=== PATIENT | female | born 2000 | race African-American/Black ===

== ENCOUNTER 2020-06-25 03:23 | Emergency (ER) | payer OTHER ==
[~2020-06-25] VITALS: Ht 165.1 cm; Wt 63.6 kg
[2020-06-25] MEDS ORDERED: CefTRIAXone SODIUM 1 GM/VIAL IM ONE (03:45)
[2020-06-25] MEDS ORDERED: AZITHROMYCIN 500 MG TABLET PO ONE (03:45)
[2020-06-25] MEDS ORDERED: LIDOCAINE/PF 1% 2 ML VIAL IM ONE (03:45)
[2020-06-25 04:14] VITALS: BP 119/65
[2020-06-25 04:26] LABS: APPEARANCE,URINE CLEAR (CLEAR); BILIRUBIN,URINE NEGATIVE (NEGATIVE); GLUCOSE, URINE (UA) NEGATIVE (NEGATIVE); KETONES,URINE NEGATIVE (NEGATIVE); LEUKOCYTE ESTERASE ,URINE NEGATIVE (NEGATIVE); NITRATE,URINE NEGATIVE (NEGATIVE); OCCULT BLOOD,URINE NEGATIVE (NEGATIVE); PH,URINE 7.5 (5.0-8.0); PROTEIN,URINE NEGATIVE (NEGATIVE); UROBILINOGEN,URINE 0.2 mg/dL (<=1.0)
[2020-06-25 04:55] LABS: BACTERIA,URINE Rare /HPF (None Seen); RBC,URINE None Seen /HPF (0-2); SQUAMOUS EPITHELIAL CELL,UR Moderate /LPF (None Seen); WBC,URINE 0-2 /HPF (0-5)
== END 2020-06-25 05:32 | disposition home or self-care (01) ==
LOC: EMS 03:26
DX: N89.8 Other specified noninflammatory disorders of vagina (principal)
CPT/HCPCS: 81001; 81025; 87210; 87491; 87591; 96372; 99283; A9575; J0696; J3490

== ENCOUNTER 2020-11-23 06:20 | Emergency (ER) | payer OTHER ==
[~2020-11-23] VITALS: Ht 165.1 cm; Wt 75.0 kg
[2020-11-23 08:36] LABS: COVID AG,FIA SOURCE NASOPHARYNGEAL
[2020-11-23] MEDS ORDERED: ACETAMINOPHEN 650 MG RECTAL SUPPOSITORY PR ONE (09:30)
[2020-11-23] MEDS ORDERED: ACETAMINOPHEN 500 MG TABLET PO ONE (09:45)
[2020-11-23 10:00] VITALS: BP 127/72
== END 2020-11-23 10:05 | disposition home or self-care (01) ==
LOC: EMS 06:20
DX: J06.9 Acute upper respiratory infection, unspecified (principal); J45.909 Unspecified asthma, uncomplicated; F17.200 Nicotine dependence, unspecified, uncomplicated; Z20.822 Contact with and (suspected) exposure to COVID-19
CPT/HCPCS: 81025; 87426; 99283; U0003

== ENCOUNTER 2021-02-10 01:02 | Emergency (ER) | payer OTHER ==
[~2021-02-10] VITALS: Ht 165.1 cm; Wt 75.0 kg
[2021-02-10] MEDS ORDERED: CefTRIAXone SODIUM 1 GM/VIAL IM ONE (01:45)
[2021-02-10] MEDS ORDERED: AZITHROMYCIN 500 MG TABLET PO ONE (01:45)
[2021-02-10] MEDS ORDERED: LIDOCAINE/PF 1% 2 ML VIAL IM ONE (01:45)
[2021-02-10 02:26] LABS: APPEARANCE,URINE CLOUDY (CLEAR); BILIRUBIN,URINE NEGATIVE (NEGATIVE); GLUCOSE, URINE (UA) NEGATIVE (NEGATIVE); KETONES,URINE NEGATIVE (NEGATIVE); LEUKOCYTE ESTERASE ,URINE LARGE (NEGATIVE); NITRATE,URINE NEGATIVE (NEGATIVE); OCCULT BLOOD,URINE TRACE (NEGATIVE); PH,URINE 6.5 (5.0-8.0); PROTEIN,URINE TRACE (NEGATIVE); UROBILINOGEN,URINE 0.2 mg/dL (<=1.0)
[2021-02-10 02:32] LABS: BACTERIA,URINE Many /HPF (None Seen); WBC,URINE 51-100 /HPF (0-5)
[2021-02-10 03:00] VITALS: BP 118/81
[2021-02-10] MEDS ORDERED: CEPHALEXIN MONOHYDRATE 500 MG CAPSULE PO ONE (03:00)
[2021-02-10] MEDS ORDERED: FLUCONAZOLE 150 MG TABLET PO ONE (03:00)
== END 2021-02-10 03:10 | disposition home or self-care (01) ==
LOC: EMS 01:03
DX: N89.8 Other specified noninflammatory disorders of vagina (principal); N39.0 Urinary tract infection, site not specified; J45.909 Unspecified asthma, uncomplicated
CPT/HCPCS: 81001; 84703; 87086; 87210; 87491; 87591; 96372; 99284; J0696; J3490; Q9967; 99285